=== PATIENT | female | born 1985 | race American Indian/Alaskan Native ===

== ENCOUNTER 2021-12-05 22:34 | Inpatient (IN) | payer OTHER ==
[2021-12-06] MEDS ORDERED: miSOPROStol 200 MCG TAB PR PRN (00:23)
[2021-12-06] MEDS ORDERED: TERBUTALINE 1 MG/1 ML INJ SUB-Q PRN (00:23)
[2021-12-06] MEDS ORDERED: ePHEDrine SULFATE 50 MG/1 ML INJ IV PRN ×2 (00:23→12:33)
[2021-12-06] MEDS ORDERED: METHYLERGONOVINE MALEATE 0.2 MG/ML VIAL IM PRN (00:23)
[2021-12-06] MEDS ORDERED: ONDANSETRON 4 MG/2 ML INJ IV PRN (00:23)
[2021-12-06] MEDS ORDERED: LIDOCAINE (2%) 20 MG/1 ML VIAL 20 ML MDV INFILTRATI ONE ×2 (00:23→19:37)
[2021-12-06] MEDS ORDERED: ACETAMINOPHEN 325 MG TAB PO PRN (00:23)
[2021-12-06] MEDS ORDERED: fentaNYL 100 MCG/2 ML INJ IV PRN (00:23)
[2021-12-06] MEDS ORDERED: CARBOPROST TROMETHAMINE 250 MCG/1 ML INJ IM PRN (00:23)
[2021-12-06] MEDS ORDERED: BUTORPHANOL 2 MG/1 ML INJ IV PRN (00:23)
[2021-12-06] MEDS ORDERED: OXYTOCIN 10 UNIT/1 ML INJ IM PRN (00:23)
[2021-12-06] MEDS ORDERED: MINERAL OIL 30 ML ORAL LIQD PO PRN (00:23)
[2021-12-06] MEDS ORDERED: LOPERAMIDE 2 MG CAP PO PRN (00:23)
[2021-12-06] MEDS ORDERED: NALOXONE 0.4 MG/1 ML INJ IV PRN ×2 (00:23→12:33)
[2021-12-06] MEDS ORDERED: OXYTOCIN DRIP 30 UNITS/500 ML BAG IV SCH ×2 (01:00)
[2021-12-06] MEDS ORDERED: miSOPROStol 25 MCG TAB PO SCH (01:30)
[2021-12-06 01:46] LABS: Hematocrit 38.2 % (30.3-42.9); Hemoglobin 12.7 gm/dl (10.1-14.3); Mean Corpuscular HGB Conc 33 % (30-34); Mean Corpuscular Volume 100 fl (79-97); Platelet Count 152 K/mm3 (140-440); Red Blood Count 3.82 M/mm3 (3.65-5.03); Red Cell Distribution Width 14.4 % (13.2-15.2)
[2021-12-06] MEDS: LACTATED RINGERS 1,000 ML IV SCH ×3 (04:41→15:04)
[2021-12-06] MEDS: VANCOMYCIN/NS 1 GM/250 ML 1 GM/250 ML BAG IV SCH ×2 (04:55→17:31)
--- NOTE | 2021-12-06 06:45 | History and Physical Report ---
History of Present Illness Date of examination: 12/06/21 Chief complaint: my water broke History of present illness: Pt is a 36 year old HEATHER 12/20/21 at 38w0d presents with rupture of me mbranes at 2100 pm 12/05/21. She reports irregular contractions, vaginal bleeding or leakage of fluid. She has had care at [facility] and [facility] since 12 wks complicated by advanced maternal age, LGA fetus that resolved, penicillin allergy, genital herpes without lesion or prodrome, and GBS positive status. ROM plus test in triage is positive Past History Past Medical History: no pertinent history Past Surgical History: D&C [employer] History: abnormal PAP smear, herpes (no lesion or prodrome ) Family/Genetic History: hypertension Social history: no significant social history - Obstetrical History Expected Date of Delivery: 12/20/21 Actual Gestation: 38 Week(s) 0 Day(s) : 8 Para: 0 Hx # Term Pregnancies: 0 Number of Pregnancies: 0 Spontaneous Abortions: 0 Induced : 7 Number of Living Children: 0 Medications and Allergies Allergies Allergy/AdvReac Type Severity Reaction Status Date / Time Penicillins Allergy Unknown Verified 12/05/21 23:25 Active Meds: Active Medications Acetaminophen (Acetaminophen 325 Mg Tab) 650 mg PO Q4H PRN PRN Reason: Pain, Mild (1-3) Butorphanol Tartrate (Butorphanol 2 Mg/1 Ml Inj) 1 mg IV Q2H PRN PRN Reason: Pain, Moderate(4-6) LABOR PAIN Carboprost Tromethamine (Carboprost Tromethamine 250 Mcg/1 Ml Inj) 250 mcg IM ONCE PRN PRN Reason: Uterine Bleeding Ephedrine Sulfate (Ephedrine Sulfate 50 Mg/1 Ml Inj) 10 mg IV Q2M PRN PRN Reason: Hypotension Fentanyl (Fentanyl 100 Mcg/2 Ml Inj) 100 mcg IV Q2H PRN PRN Reason: Pain,Severe (7-10) LABOR PAIN Oxytocin/Sodium Chloride (Pitocin/Ns 30 Unit/500ml) 30 units in 500 mls @ 2 mls/hr IV TITR JEFERSON; Protocol Lactated Ringer's (Lactated Ringers) 1,000 mls @ 125 mls/hr IV DIRECT JEFERSON Last Admin: 12/06/21 04:41 Dose: 125 mls/hr Oxytocin/Sodium Chloride (Pitocin/Ns 30 Unit/500ml) 30 units in 500 mls @ 40 mls/hr IV TITR JEFERSON; Protocol Vancomycin HCl (Vancomycin/Ns 1 Gm/250 Ml) 1 gm in 250 mls @ 167.007 mls/hr IV Q12H [facility]; Protocol Last Admin: 12/06/21 04:55 Dose: 167.007 mls/hr Loperamide HCl (Loperamide 2 Mg Cap) 2 mg PO ONCE PRN PRN Reason: give with Hemabate Methylergonovine Maleate (Methylergonovine Maleate 0.2 Mg/Ml Vial) 0.2 mg IM ONCE PRN PRN Reason: Uterine Bleeding Mineral Oil (Mineral Oil 30 Ml Oral Liqd) 30 ml PO QHS PRN PRN Reason: Constipation Misoprostol (Misoprostol 200 Mcg Tab) 800 mcg UT ONCE PRN PRN Reason: Uterine Bleeding Misoprostol (Misoprostol 25 Mcg Tab) 25 mcg PO Q4H [facility] Stop: 12/06/21 13:31 Last Admin: 12/06/21 05:29 Dose: 25 mcg Naloxone HCl (Naloxone 0.4 Mg/1 Ml Inj) 0.1 mg IV Q2MIN PRN PRN Reason: Res Rate </= 8 or 02 SAT < 92% Ondansetron HCl (Ondansetron 4 Mg/2 Ml Inj) 4 mg IV Q8H PRN PRN Reason: Nausea And Vomiting Oxytocin (Oxytocin 10 Unit/1 Ml Inj) 10 unit IM ONCE PRN PRN Reason: Uterine Bleeding Terbutaline Sulfate (Terbutaline 1 Mg/1 Ml Inj) 0.25 mg SUB-Q ONCE PRN PRN Reason: Hyperstimulation/Hypertonicity Review of Systems All systems: negative - Vital Signs Vital signs: Vital Signs Pulse BP Pulse Ox 82 112/75 92 12/05/21 23:14 12/05/21 23:14 12/05/21 23:14 Temp Pulse Resp BP Pulse Ox 98.2 F 86 16 112/75 96 12/06/21 05:13 12/06/21 06:39 12/06/21 01:49 12/05/21 23:14 12/06/21 06:39 - Physical Exam Breasts: Positive: deferred Abdomen: Positive: soft (gravid ) Uterus: Positive: enlarged (gravid ) Extremities: Positive: normal - Obstetrical FHR: auscultation normal Uterine Contraction Monitor Mode: External Cervical Dilatation: 0.5 Uterine Contraction Pattern: Irregular Uterine Tone Measurement Phase: Resting Uterine Contraction Intensity: Moderate Results Result Diagrams: 12/06/21 01:01 Abnormal lab results 12/05/21 12/06/21 Range/Units 23:24 01:01 MCV 100 H (79-97) fl MCH 33 H (28-32) pg Membranes Rupture Positive A (Negative) All other labs normal. Assessment and Plan A: IUP at 38w0d SROM Advanced maternal age Genital Herpes without lesion or prodrome GBS positive-penicillin allergy, sensitivities unavailable P: Admit to labor and delivery Vancomycin for GBS prophylaxis Valtrex for suppression Misoprostol PO for cervical ripening Closely monitor maternal and status
[2021-12-06] MEDS ORDERED: valACYclovir 500 MG TAB PO SCH (08:00)
[2021-12-06] MEDS ORDERED: fentaNYL-BUPIV 2 MCG/ML-0.125% 200 MCG/100 ML BAG EPIDURAL ONE (10:09)
[2021-12-06] MEDS: fentaNYL-BUPIV 2 MCG/ML-0.125% 200 MCG/100 ML BAG EPIDURAL SCH ×3 (10:18→21:07)
--- NOTE | 2021-12-06 12:38 | Anesthesia Consultation ---
Anesthesia Consult and Med Hx Date of service: 12/06/21 - Airway Anesthetic Teeth Evaluation: Poor ROM Head & Neck: Adequate Mental/Hyoid Distance: Adequate Mallampati Class: Class II Intubation Access Assessment: Good - Pulmonary Exam CTA: Yes - Cardiac Exam Cardiac Exam: RRR - Pre-Operative Health Status ASA Pre-Surgery Classification: ASA2 Proposed Anesthetic Plan: Epidural - Pre-Anesthesia Comment Pre-Anesthesia Comments: elective abortions- No anesthesia complications - Pulmonary Hx Smoking: No Hx Asthma: No COPD: No Hx Pneumonia: No - Cardiovascular System Hx Hypertension: No - Central Nervous System Hx Seizures: No Hx Psychiatric Problems: No - Endocrine Hx Renal Disease: No Hx End Stage Renal Disease: No Hx Hypothyroidism: No Hx Hyperthyroidism: No - Hematic Hx Anemia: No Hx Sickle Cell Disease: No - Other Systems Hx Alcohol Use: No Hx Substance Use: No Hx Obesity: No
--- NOTE | 2021-12-06 12:40 | Progress Note ---
Labor Epidural - Labor Epidural Start Time: 09:49 Stop Time: 10:00 Performed by:: ELBA ABDI Procedure: Patient is requesting epidural for labor pain. H&P and labs reviewed. Procedure explained, questions answered, consent obtained. Patient placed in sitting position with monitors applied. Timeout performed immediately before start of procedure. Prep/drape in usual sterile fashion. Skin localized 3 mL 1% lidocaine at L[3]-L[4] interspace. 17-gauge Tuohy epidural needle advanced to DEA with saline at [8] cm x 2 attempts. No blood/CSF noted via epidural needle. Epidural catheter advanced to [12] cm. Negative aspiration for blood and CSF via catheter, negative response to test dose 3 ml 1.5% lidocaine w/ epi. Sterile dressing applied followed by tape reinforcement. Patient tolerated procedure well. No immediate complications noted.
--- NOTE | 2021-12-06 20:16 | Procedure Note ---
OB Delivery Note - Delivery Date of Delivery: 12/06/21 Surgeon: MARCELINO TORRES Estimated blood loss: other (600 mL) - Vaginal Delivery presentation: vertex Delivery position: OA Intrapartum events: febrile- temp >100.3, PROM->1hr before delivery, hemorrhage, uterine atony (s/p Methergine 0.2 mg IM ) Delivery induction: misoprostol Delivery augmentation: pitocin Delivery monitor: external FHT, external uterine Route of delivery: Episiotomy: none Delivery laceration: 1st degree, other (Bilateral periurethral repaired with 2-0 and 3-0 Vicryl ) Delivery repair: vicryl Anesthesia: epidural - Infant A at 1 minute: 8 at 5 minutes: 9 Gender: Male (2900g (6lb 6oz) @ 1917 pm)
[2021-12-07] MEDS ORDERED: ONDANSETRON 4 MG/2 ML INJ IV PRN (00:54)
[2021-12-07] MEDS ORDERED: LANOLIN/ZINC/DIMETHICONE (LANSINOH) 7 GM TP PRN ×2 (00:54)
[2021-12-07] MEDS ORDERED: MAGNESIUM HYDROXIDE (MOM) ORAL LIQD UDC PO PRN (00:54)
[2021-12-07] MEDS ORDERED: WITCH HAZEL/ GLYCERIN PAD TP PRN (00:54)
[2021-12-07] MEDS ORDERED: PROMETHAZINE 25 MG RECT SUPP PR PRN (00:54)
[2021-12-07] MEDS ORDERED: BENZOCAINE/MENTHOL 20/0.5% TOP SPRAY 56 GM TP PRN (00:54)
[2021-12-07] MEDS ORDERED: diphenhydrAMINE 25 MG CAP PO PRN (00:54)
[2021-12-07] MEDS ORDERED: PROMETHAZINE 25 MG TAB PO PRN (00:54)
[2021-12-07] MEDS ORDERED: HYDROcodone/ACETAMINOPHEN 5-325 MG TAB PO PRN (00:54)
[2021-12-07] MEDS ORDERED: OXYTOCIN DRIP 30 UNITS/500 ML BAG IV SCH (00:54)
[2021-12-07] MEDS: IBUPROFEN 600 MG TAB PO SCH ×4 (01:20→17:44)
[2021-12-07] MEDS ORDERED: TETANUS,DIPH,PERTUSS(ACELL) VACCINE 0.5 ML SYRINGE IM ONE (06:00)
[2021-12-07] MEDS ORDERED: MEASLES, MUMPS & RUBELLA 12,500 UNIT/0.5 ML VACCINE SUB-Q ONE (06:00)
--- NOTE | 2021-12-07 08:04 | Post Anesthesia Evaluation ---
- Post Anesthesia Evaluation Patient Participated: Yes Airway Patent: Yes Stable Respiratory Function: Yes Nausea/Vomiting: No Temp > 96.8F: Yes Pain Manageable: Yes Adequeate Hydration: Yes Anesthesia Complications: No Block Receding Appropriately: Yes Patient on Ventilator: No
[2021-12-07 09:12] LABS: Hematocrit 33.5 % (30.3-42.9)
[2021-12-07] MEDS: FERROUS SULFATE 325 MG TAB PO SCH ×2 (10:26→10:28)
--- NOTE | 2021-12-07 14:00 | Progress Note ---
Assessment and Plan A: PPD#1 s/p at term P: Routine care Anticipate discharge tomorrow Subjective - Subjective Date of service: 12/07/21 Principal diagnosis: s/p at term Interval history: Pt without complaints today. Decreasing lochia. Patient reports: appetite normal, voiding normally, pain well controlled, ambulating normally : doing well Objective - Vital Signs Latest vital signs: Vital Signs Temp Pulse Resp BP BP Pulse Ox Pulse Ox 12/07/21 08:13 98.0 F 83 18 101/55 97 12/07/21 08:00 97 12/07/21 05:26 98.2 F 86 18 102/55 96 12/06/21 22:13 98.0 F 86 22 112/72 97 97 12/06/21 21:09 98.0 F 12/06/21 20:59 88 98 12/06/21 20:54 85 98 12/06/21 20:49 86 97 12/06/21 20:44 94 H 97 12/06/21 20:40 85 113/63 12/06/21 20:39 83 98 12/06/21 20:34 95 H 99 12/06/21 20:29 89 99 12/06/21 20:24 94 H 98 12/06/21 20:19 93 H 99 12/06/21 20:14 94 H 98 12/06/21 20:10 108 H 108/67 12/06/21 20:09 99 H 98 12/06/21 20:04 93 H 97 12/06/21 19:59 97 H 98 12/06/21 19:54 97 H 99 12/06/21 19:53 99 F 12/06/21 19:49 96 H 98 12/06/21 19:44 93 H 99 12/06/21 19:40 93 H 110/57 12/06/21 19:39 89 100 12/06/21 19:34 89 97 12/06/21 19:30 98.6 F 12/06/21 19:29 90 98 12/06/21 19:24 90 99 12/06/21 19:19 92 H 97 12/06/21 19:14 89 98 12/06/21 19:12 85 128/58 12/06/21 19:10 96 12/06/21 19:09 88 97 12/06/21 19:04 116 H 98 12/06/21 19:00 82 94 12/06/21 18:59 89 98 12/06/21 18:54 78 94 12/06/21 18:49 90 97 12/06/21 18:46 81 94 12/06/21 18:44 91 H 99 12/06/21 18:40 100.9 F H 74 26 H 113/66 12/06/21 18:39 85 97 12/06/21 18:34 80 94 12/06/21 18:29 107 H 98 12/06/21 18:24 102 H 98 12/06/21 18:19 115 H 100 12/06/21 18:14 107 H 100 12/06/21 18:12 94 H 141/81 12/06/21 18:09 78 92 12/06/21 18:04 96 H 97 12/06/21 17:59 83 96 12/06/21 17:54 89 98 12/06/21 17:49 85 98 12/06/21 17:44 115 H 97 12/06/21 17:40 86 117/62 12/06/21 17:39 84 97 12/06/21 17:34 86 96 12/06/21 17:29 118 H 98 12/06/21 17:24 89 98 12/06/21 17:19 115 H 98 12/06/21 17:14 95 H 97 12/06/21 17:11 88 101/52 12/06/21 17:09 93 H 98 12/06/21 17:04 90 97 12/06/21 16:59 90 96 12/06/21 16:54 92 H 97 12/06/21 16:51 88 94 12/06/21 16:49 83 96 12/06/21 16:45 90 94 12/06/21 16:44 86 96 12/06/21 16:40 92 H 92/53 12/06/21 16:39 88 94 12/06/21 16:34 88 94 12/06/21 16:29 88 98 12/06/21 16:24 94 H 96 12/06/21 16:21 88 94 12/06/21 16:19 89 95 12/06/21 16:15 82 94 12/06/21 16:14 85 95 12/06/21 16:10 90 91/49 12/06/21 16:09 86 94 12/06/21 16:04 81 94 12/06/21 15:59 82 94 12/06/21 15:58 81 94 12/06/21 15:54 83 93 12/06/21 15:49 87 94 12/06/21 15:47 98.2 F 88 16 94 12/06/21 15:44 87 94 12/06/21 15:42 84 94 12/06/21 15:41 85 107/58 12/06/21 15:39 84 94 12/06/21 15:34 82 94 12/06/21 15:30 84 94 12/06/21 15:29 84 93 12/06/21 15:24 89 94 12/06/21 15:20 84 94 12/06/21 15:19 88 95 12/06/21 15:14 85 94 12/06/21 15:10 81 103/61 12/06/21 15:09 87 99 12/06/21 15:04 85 99 12/06/21 14:59 82 99 12/06/21 14:54 89 99 12/06/21 14:49 86 96 12/06/21 14:48 86 94 12/06/21 14:44 85 96 12/06/21 14:42 87 92 12/06/21 14:40 81 99/63 12/06/21 14:39 82 97 12/06/21 14:34 79 98 12/06/21 14:29 93 H 98 12/06/21 14:24 95 H 98 12/06/21 14:19 95 H 98 12/06/21 14:14 90 97 12/06/21 14:11 88 124/80 12/06/21 14:09 94 H 97 12/06/21 14:04 93 H 98 Intake and Output 12/06/21 12/07/21 12/07/21 22:59 06:59 14:59 Intake Total 593.75 480 120 Output Total 800 1150 Balance -206.25 -670 120 Intake: IV 593.75 Lactated Ringers 1,000 ml 593.75 @ 125 mls/hr IV DIRECT JEFERSON Rx#:[id number] PITOCin/NS 30 UNIT/500ML 0 30 units In 500 ml @ 2 mls/hr IV TITR JEFERSON Rx#: [id number] Oral 120 Intake, Free Water 480 Output: Urine 800 1150 Indwelling Catheter 500 Void 300 1150 Other: Total, Intake Amount 120 Total, Output Amount 300 400 # Voids Void 1 Estimated Blood Loss 600 - Exam Breasts: Present: deferred Abdomen: Present: soft Uterus: Present: fundal height at umbilicus Extremities: Present: normal
--- NOTE | 2021-12-07 14:00 | Discharge Summary ---
Providers - Providers Date of Admission: 12/06/21 00:23 Date of discharge: 12/08/21 Attending physician: MARCELINO CHAMPAGNE 12/07/21 00:54 Consult to [employer] Area Supervisor [CONS] Routine Reason For Exam: assistance with , SNS Primary care physician: MARCELINO CHAMPAGNE Hospitalization Reason for admission: rupture of membranes Delivery: Procedure details: Please see delivery note Episiotomy: none Laceration: 1st degree Other procedures: none complications: none Discharge diagnosis: IUP at term delivered baby: male Hospital course: This patient was admitted with rupture of membranes at term and went on to have a spontaneous vaginal delivery which she tolerated well. Her course was uncomplicated and she met discharge criteria on day #2. She will follow-up in the office in [address] Champagne for laceration check. Condition at discharge: Stable Disposition: 01 HOME / SELF CARE / HOMELESS - Discharge Diagnoses (1) SROM (spontaneous rupture of membranes) Status: Acute (2) Term of male Status: Acute (3) (spontaneous vaginal delivery) Status: Acute Plan - Discharge Medications Prescriptions: Ibuprofen [Motrin] 600 mg PO Q6H PRN #30 tablet PRN Reason: Pain - Provider Discharge Summary Activity: routine, no sex for 6 weeks, no heavy lifting 4 weeks, no strenuous exercise Diet: routine Instructions: routine Additional instructions: [] Smoking cessation referral if applicable(refer to patient education folder for contact #) [] Refer to [facility] Booklet Call your doctor immediately for: * Fever > 100.5 * Heavy vaginal bleeding ( >1 pad per hour) * Severe persistent headache * Shortness of breath * Reddened, hot, painful area to leg or breast * Drainage or odor from incision. * Keep incision clean and dry at all times and follow doctor's instructions regarding bathing/showering - Follow up plan Follow up: MARCELINO CHAMPAGNE MD [Primary Care Provider] - 01/05/22 (Please schedule laceration check in [address] Champagne. Please schedule your son's circumcision before he is 1 month old)
[2021-12-08] MEDS: IBUPROFEN 600 MG TAB PO SCH (05:20)
[2021-12-08] MEDS: FERROUS SULFATE 325 MG TAB PO SCH (10:52)
[2021-12-08 16:52] VITALS: BP 102/63
== END 2021-12-08 18:45 | disposition home or self-care (01) | DRG 806 ==
LOC: TRG 22:34 → APU 22:36 → LD 12-06 00:23 → TRG 12-06 00:23 → LD 12-06 02:27 → OB 12-06 21:55
PROVIDERS: ADMIT Obstetrics & Gynecology; ATTEND Obstetrics & Gynecology
PROC: 10E0XZZ Delivery of Products of Conception, External Approach (ICD-10-PCS; principal; 2021-12-06)
PROC: 3E0R3BZ Introduction of Anesthetic Agent into Spinal Canal, Percutaneous Approach (ICD-10-PCS; 2021-12-06)
PROC: 00HU33Z Insertion of Infusion Device into Spinal Canal, Percutaneous Approach (ICD-10-PCS; 2021-12-06)
PROC: 3E0P7VZ Introduction of Hormone into Female Reproductive, Via Natural or Artificial Opening (ICD-10-PCS; 2021-12-06)
PROC: 0HQ9XZZ Repair Perineum Skin, External Approach (ICD-10-PCS; 2021-12-06)
DX: O42.02 Full-term premature rupture of membranes, onset of labor within 24 hours of rupture (principal); O98.32 Other infections with a predominantly sexual mode of transmission complicating childbirth; Z37.0 Single live birth; O72.1 Other immediate postpartum hemorrhage; A60.00 Herpesviral infection of urogenital system, unspecified; Z3A.38 38 weeks gestation of pregnancy; O99.824 Streptococcus B carrier state complicating childbirth; O70.0 First degree perineal laceration during delivery; Z88.0 Allergy status to penicillin; Z82.49 Family history of ischemic heart disease and other diseases of the circulatory system
CPT/HCPCS: 36415; 84112; 85014; 85018; 85027; 86850; 86900; 86901; 88307; G0378; J3490; J2210; J2590; J3010; J3370; J7120; U0003